=== PATIENT | male | born 1965 | race Caucasian/White ===

== ENCOUNTER 2022-11-20 07:29 | Day surgery (SDC) | payer SELFPAY, OTHER ==
[2022-11-20] VITALS (7 sets, daily range): BP systolic 97–124; BP diastolic 70–86; PULSE 63–82; RESP 16–100; TEMP 36.2–37.1; O2SAT 96–100; BMI 24.6
[2022-11-20] MEDS: Lactated Ringers 1,000 ML 15 ML IV (08:14)
--- NOTE | 2022-11-20 09:19 | H&P.OPEN ---
HPI - General HPI Narrative INNA HARRIS, is a 56 M who presents for surveillance colonoscopy. He reports his last colonoscopy was 6 to 7 years ago and they did find polyps. He denies any abdominal pain or blood in the stool. He does not know if he has family history of colon cancer. [facility] Medical History (Updated 11/20/22 @ 09:[address] Ankit Vanessa MD) Heartburn History of edema History of open arm wound Hx of colonic polyp Leg cramps Low iron Migraine headache Smoker Wears glasses Home Medications ascorbic acid (vitamin C) 500 mg capsule,extended release (Vitamin C) 500 mg PO DAILY 11/16/22 [History Last Taken Unknown] Allergy/AdvReac Type Severity Reaction Status Date / Time No Known Allergies Allergy Unverified 11/20/22 08:15 Family History (Updated 09/13/22 @ 13:23 by Radha Novoa) Unknown No problems noted. Surgical History (Updated 11/16/22 @ 09:00 by Sandy Martinez) History of colonoscopy History of esophagogastroduodenoscopy (EGD) Hx of rotator cuff surgery Social History (Updated 09/13/22 @ 13:25 by Radha Novoa) adopted: Yes household members: spouse current occupational status: employed Smoking Status: Current every day smoker tobacco type: cigars naomi/nondenominational: Jaime Past Medical/Surgical History Planned Operation Planned Operative Procedure/s: CSCOPE OA Previous Hospitalizations/Surgeries HX Hospitalizations: No Any Problems With Anesthesia: No You/Your Family Experience Fever (Hyperthermia) With Anes: No Cholinesterase deficiency: No Cardiovascular Hx Hypertension: No Respiratory Hx Sleep Apnea: No Hx Respiratory Tract Infection/Cold (presently): No Do You Snore Loudly (louder than talking or can be heard): Yes Do You Often Feel Tired/ Fatigued/ Sleepy Dring Daytime?: No Has Anyone Observed You Stop Breathing During Sleep?: No Result (for STOP score): Negative Smoking Status: Current every day smoker Neurological Does patient have nerve stimulator: No Reproduction : No Miscellaneous Recent Exposure to Contagious Disease: No Allergies No Known Allergies Allergy (Unverified 11/20/22 08:15) Discharge Is Pt Admitted From a Care Home, or a [facility]: No After D/C, Where Do you Plan to Go: Return Home Vital Signs Vital Signs Vital Signs: 11/20/22 08:16 11/20/22 08:16 Temperature 98.7 F Temperature Source Temporal Pulse Rate 82 Respiratory Rate 18 Respiratory Pattern Normal Blood Pressure 124/86 H Blood Pressure Mean 98 Blood Pressure Source Monitor Blood Pressure Position Semi-Fowlers Blood Pressure Location Left Arm Pulse Ox 97 Oxygen Delivery Method Room Air Weight Weight: 192 lb 0.362 oz Body Mass Index (BMI) 24.6 Physical Exam Const alert and oriented x3 HEENT normocephalic Eyes PERRL Resp normal respiratory effort and normal air movement Cardio regular rate and regular rhythm GI soft to palpation, non-tender and non-distended Extremity normal to inspection Assessment & Plan Assessment/Plan (1) History of colon polyps: PLAN: I explained endoscopy in detail to the patient. I explained the risks including but not limited to stroke or heart attack with anesthesia, perforation of the GI tract, bleeding, infection. I explained that any of these could necessitate further emergency surgery. The patient understands and all questions were answered sufficiently. The patient wishes to proceed with procedure. Ankit Vanessa MD Pager: [facility] [address] [place] [address] [address] [place] [address] Office: Surgery Risks - Colonoscopy Risks Include but are not Limited To: Risks include but are not limited to: Bleeding, perforation requiring further surgery, inability to complete colonoscopy requiring barium enema.
--- NOTE | 2022-11-20 09:50 | OP.COLON_ITS ---
Patient Name: Franco Smith Procedure Date: 11/20/2022 9:23 AM Date of : 1965 Age: 56 Procedure: Colonoscopy Indications: High risk colon cancer surveillance: Personal history of colonic polyps Providers: Ankit Vanessa MD Medicines: Monitored Anesthesia Care Patient Profile: This is a 56 year old male. Refer to note in patient chart for documentation of history and physical. Last Colonoscopy: 5 years ago. Complications: No immediate complications. Procedure: Pre-Anesthesia Assessment: - Prior to the procedure, a History and Physical was performed, and patient medications and allergies were reviewed. The patient's tolerance of previous anesthesia was also reviewed. The risks and benefits of the procedure and the sedation options and risks were discussed with the patient. All questions were answered, and informed consent was obtained. Prior Anticoagulants: The patient has taken no previous anticoagulant or antiplatelet agents. After reviewing the risks and benefits, the patient was deemed in satisfactory condition to undergo the procedure. After I obtained informed consent, the scope was passed under direct vision. Throughout the procedure, the patient's blood pressure, pulse, and oxygen saturations were monitored continuously. The colonoscope was introduced through the anus and advanced to the cecum, identified by appendiceal orifice and ileocecal valve. The colonoscopy was performed without difficulty. The patient tolerated the procedure well. The quality of the bowel preparation was good. Scope In: 9:36:01 AM Scope Withdrawal Time 0 hours 5 minutes 5 seconds Scope Out: 9:47:11 AM Total Procedure Duration Time 0 hours 11 minutes 10 seconds Findings: The entire examined colon appeared normal on direct and retroflexion views. Impression: - The entire examined colon is normal on direct and retroflexion views. - No specimens collected. Recommendation: - Discharge patient to home. - Resume previous diet. - Continue present medications. - Repeat colonoscopy in 10 years for screening purposes. Procedure Code(s): --- Professional --- 91446, Colonoscopy, flexible; diagnostic, including collection of specimen(s) by brushing or washing, when performed (separate procedure) Diagnosis Code(s): --- Professional --- Z86.010, Personal history of colonic polyps CPT copyright 2017 [employer]. All rights reserved. The codes documented in this report are preliminary and upon rotary driller review may be revised to meet current compliance requirements. Ankit Vanessa MD 11/20/2022 9:50:09 AM This report has been signed electronically. Number of Addenda: 0 Note Initiated On: 11/20/2022 9:23 AM
== END 2022-11-20 10:31 | disposition home or self-care (01) ==
LOC: EN 07:33 → AC 07:35
PROVIDERS: Visit Provider Surgery
PROC: 0DJD8ZZ Inspection of Lower Intestinal Tract, Via Natural or Artificial Opening Endoscopic (ICD-10-PCS; CPT 45378; principal; 2022-11-20 09:25)
DX: Z12.11 Encounter for screening for malignant neoplasm of colon (principal); F17.290 Nicotine dependence, other tobacco product, uncomplicated; Z86.010 Personal history of colon polyps
CPT/HCPCS: 45378; J7120; J2405